=== PATIENT | female | born 1955 | race Caucasian/White ===

== ENCOUNTER 2017-11-18 01:54 | Inpatient (IN) | payer OTHER ==
[2017-11-18] VITALS (8 sets, daily range): BP systolic 139–169; BP diastolic 47–99
[~2017-11-18] VITALS: Ht 165.1 cm; Wt 92.5 kg
[2017-11-18] MEDS ORDERED: ONDANSETRON HCL 4MG/2ML VIAL IV STA (02:40)
[2017-11-18] MEDS ORDERED: FAMOTIDINE 20MG/2ML VIAL IV STA (02:40)
[2017-11-18] MEDS ORDERED: MAGNESIUM 2 G PREMIX 50 ML IV ONE (02:45)
[2017-11-18] MEDS ORDERED: LORAZEPAM 2MG/ML CPJ IV ONE (02:45)
[2017-11-18] MEDS ORDERED: FOLIC ACID 1 MG, THIAMINE HCL 100 MG, MVI, ADULT NO.1 10 ML in DEXTROSE 5% WATER 1,000 ML IV ONE ×4 (02:45)
[2017-11-18 03:14] LABS: MEAN CORPUSCULAR HEMOGLOBIN 31.5 pg (28.0-32.0); MEAN CORPUSCULAR VOLUME 91.9 fL (81.0-99.0); MEAN PLATELET VOLUME 9.5 fl (7.4-10.4); PLATELET 222 x1000/uL (130-400); RED BLOOD CELL COUNT 4.46 mill/uL (4.2-5.4); RED CELL DISTRIBUTION WIDTH 17.4 % (11.6-14.6)
[2017-11-18 03:16] LABS: PROTHROMBIN TIME 10.3 sec (9.4-11.6)
[2017-11-18 03:25] LABS: CARBON DIOXIDE 30 mEq/L (21-32); CHLORIDE 100 mEq/L (98-107); TROPONIN I < 0.02 ng/mL (0.00-0.04)
[2017-11-18 04:01] LABS: PLATELET ESTIMATE NORMAL
[2017-11-18] MEDS ORDERED: DEXTROSE 50% WATER 50ML SYRINGE IV ONE ×2 (06:30→08:30)
[2017-11-18] MEDS ORDERED: DEXTROSE 10% WATER 500 ML IV ONE (08:30)
[2017-11-18] MEDS ORDERED: DEXT 5%/0.45% NACL 1000ML 1,000 ML IV SCH (09:03)
[2017-11-18] MEDS ORDERED: ACETAMINOPHEN 650MG/20.3ML UDC PO PRN (09:15)
[2017-11-18] MEDS ORDERED: ONDANSETRON HCL 4MG/2ML VIAL IV PRN (09:15)
[2017-11-18] MEDS ORDERED: ENOXAPARIN 40MG/0.4ML SYR SUBCUT SCH (09:15)
[2017-11-18] MEDS ORDERED: LORAZEPAM 2MG/ML CPJ IV PRN ×2 (09:15→13:15)
[2017-11-18] MEDS ORDERED: FOLIC ACID 1MG TABLET PO SCH (11:00)
[2017-11-18] MEDS: DEXTROSE 50% WATER 50ML SYRINGE IV PRN ×3 (11:02→14:38)
[2017-11-18] MEDS ORDERED: DEXT 10% WATER 1,000 ML IV SCH ×3 (11:15→11:45)
[2017-11-18] MEDS ORDERED: OMEP20CA10 PO (11:24)
[2017-11-18] MEDS ORDERED: NAPR-681 PO (11:24)
[2017-11-18] MEDS ORDERED: AMLO10TA80 PO (11:24)
[2017-11-18] MEDS ORDERED: ONDA4TAB8 PO (11:24)
[2017-11-18] MEDS ORDERED: HYDR25TA PO (11:24)
[2017-11-18] MEDS ORDERED: BUSP5TAB3 PO (11:24)
[2017-11-18] MEDS ORDERED: BUPR100T5 PO (11:24)
[2017-11-18] MEDS ORDERED: PANTOPRAZOLE SODIUM 40 MG/VIAL IV SCH (11:45)
[2017-11-18] MEDS ORDERED: ACETAMINOPHEN 650MG SUPP PR PRN (12:30)
[2017-11-18] MEDS ORDERED: IPRATROPIUM/ALBUTEROL 0.5-3(2.5)MG/3ML NEB HHN PRN (12:30)
[2017-11-18 13:26] LABS: CLARITY URINE CLEAR (CLEAR); COLOR URINE DARK YELLOW (YELLOW); KETONES URINE TRACE (NEGATIVE); LEUKOCYTE ESTERASE URINE TRACE (NEGATIVE); NITRITE URINE NEGATIVE (NEGATIVE); OCCULT BLOOD URINE NEGATIVE (NEGATIVE); PH URINE 6.5 (4.5-8.0); PROTEIN URINE 3+ (NEGATIVE); UROBILINOGEN URINE 0.2 E.U./dL (0.2-1.0)
[2017-11-18 14:03] LABS: VITAMIN B12 SERUM 748 pg/mL (211-911)
[2017-11-18 14:04] LABS: FOLIC ACID (FOLATE) SERUM > 20.00 ng/mL (>5.38)
[2017-11-18 14:06] LABS: *AMPHETAMINES SCREEN URINE NEGATIVE (NEGATIVE); *BARBITURATES SCREEN URINE NEGATIVE (NEGATIVE); *BENZODIAZEPINES SCREEN URINE NEGATIVE (NEGATIVE); *COCAINE SCREEN URINE NEGATIVE (NEGATIVE); CANNABINOID URINE SCREEN NEGATIVE (NEGATIVE); METHADONE URINE SCREEN NEGATIVE (NEGATIVE); OPIATES URINE SCREEN NEGATIVE (NEGATIVE); PHENCYCLIDINE URINE SCREEN NEGATIVE (NEGATIVE)
[2017-11-18 14:28] LABS: AMMONIA 38 uMol/L (<32)
[2017-11-18] MEDS ORDERED: LIDOCAINE HCL 1% 20ML VIAL (Pyxis) INJ ONE (15:08)
[2017-11-18 15:50] LABS: HEPATITIS B SURFACE ANTIGEN NEGATIVE
[2017-11-18] MEDS: LORAZEPAM 2MG/ML CPJ IV SCH ×3 (16:00→23:22)
[2017-11-18 16:18] LABS: HEPATITIS B CORE AB IGM NEGATIVE
[2017-11-18 16:19] LABS: HEPATITIS A AB IGM NEGATIVE (NEGATIVE)
[2017-11-18] MEDS: POTASSIUM CHLORIDE IV SCH ×2 (16:44→22:21)
[2017-11-18] MEDS: DEXTROSE 20% IV SCH ×2 (16:44→22:21)
[2017-11-18] MEDS: WATER IV SCH ×2 (16:44→22:21)
[2017-11-18 16:48] LABS: PHOSPHORUS 3.6 mg/dL (2.5-4.9)
[2017-11-19] VITALS (12 sets, daily range): BP systolic 106–165; BP diastolic 46–103
[2017-11-19] MEDS: METOPROLOL TARTRATE 25MG TABLET PO SCH ×3 (01:27→20:40)
[2017-11-19] MEDS: WATER IV SCH (03:09)
[2017-11-19] MEDS: POTASSIUM CHLORIDE IV SCH (03:09)
[2017-11-19] MEDS: DEXTROSE 20% IV SCH (03:09)
[2017-11-19] MEDS: LORAZEPAM 2MG/ML CPJ IV SCH (03:12)
[2017-11-19] MEDS ORDERED: DEXTROSE 50% WATER 50ML SYRINGE IV PRN (06:45)
[2017-11-19 06:49] LABS: BASOPHILS % 0.7 % (0.0-2.0); CARBON DIOXIDE 31 mEq/L (21-32); CHLORIDE 96 mEq/L (98-107); EOSINOPHILS % 1.1 % (0.0-5.0); HEMATOCRIT. 37.6 % (36.0-48.0); HEMOGLOBIN. 12.6 g/dL (12.0-16.0); LYMPHOCYTES % 18.9 % (20.0-50.0); MEAN CORPUSCULAR HEMOGLOBIN 31.4 pg (28.0-32.0); MEAN CORPUSCULAR VOLUME 93.3 fL (81.0-99.0); MEAN PLATELET VOLUME 10.6 fl (7.4-10.4); MONOCYTES % 4.9 % (2.0-8.0); NEUTROPHILS % 74.4 % (40.0-76.0); PHOSPHORUS 3.2 mg/dL (2.5-4.9); PLATELET 174 x1000/uL (130-400); RED BLOOD CELL COUNT 4.03 mill/uL (4.2-5.4); RED CELL DISTRIBUTION WIDTH 16.9 % (11.6-14.6)
[2017-11-19] MEDS ORDERED: DEXT 10% WATER 1,000 ML IV SCH (07:15)
[2017-11-19] MEDS ORDERED: PANTOPRAZOLE 40MG DR TABLET PO SCH (07:20)
[2017-11-19] MEDS: BLOOD SUGAR DIAGNOSTIC STRIP TEST SCH ×5 (07:30→22:39)
[2017-11-19] MEDS ORDERED: MULTIVITAMINS,THER W-MINERALS TABLET PO SCH (09:00)
[2017-11-19] MEDS ORDERED: DEXT 10%/0.9% NACL 1,000 ML IV PRN (09:00)
[2017-11-19] MEDS ORDERED: FOLIC ACID 1MG TABLET PO SCH (09:00)
[2017-11-19] MEDS ORDERED: THIAMINE HCL 100MG TABLET PO SCH (09:00)
[2017-11-19] MEDS ORDERED: DEXT 10%/0.45% NACL 1,000 ML IV SCH (09:30)
[2017-11-19] MEDS ORDERED: CEFAZOLIN 500 MG in DEXTROSE 5% WATER 50 ML IV SCH (09:30)
[2017-11-19] MEDS ORDERED: [UNRECOGNIZED DRUG - REMARK] IV SCH ×5 (10:00)
[2017-11-19] MEDS: RISPERIDONE 1MG TABLET PO SCH (10:30)
[2017-11-19] MEDS: ENOXAPARIN 40MG/0.4ML SYR SUBCUT SCH (10:54)
[2017-11-19] MEDS: LACTULOSE 20G/30ML UDC PO SCH (10:54)
[2017-11-19] MEDS ORDERED: SODIUM CHLORIDE 23.4% 77 MEQ in DEXT 10% WATER 1,000 ML IV SCH (11:30)
[2017-11-19] MEDS: CEFAZOLIN 1000MG PREMIX 50 ML IV SCH ×2 (12:22→22:09)
[2017-11-19] MEDS: CHLORDIAZEPOXIDE 25MG CAPSULE PO SCH ×2 (15:24→21:58)
[2017-11-19] MEDS: HYDROCODONE/ACETAMINOPHEN 5/325MG TABLET PO PRN (16:13)
[2017-11-19] MEDS ORDERED: [UNRECOGNIZED DRUG - REMARK] IV SCH ×4 (20:00)
[2017-11-20] VITALS (9 sets, daily range): BP systolic 141–168; BP diastolic 68–108
[2017-11-20] MEDS: BLOOD SUGAR DIAGNOSTIC STRIP TEST SCH ×3 (03:30→11:45)
[2017-11-20] MEDS ORDERED: DEXT 5%/0.45% NACL 1000ML 1,000 ML IV SCH (06:00)
[2017-11-20] MEDS: CHLORDIAZEPOXIDE 25MG CAPSULE PO SCH ×2 (06:34→13:07)
[2017-11-20] MEDS: HYDROCODONE/ACETAMINOPHEN 5/325MG TABLET PO PRN (06:40)
[2017-11-20 07:21] LABS: BASOPHILS % 1.6 % (0.0-2.0); EOSINOPHILS % 3.2 % (0.0-5.0); HEMATOCRIT. 35.5 % (36.0-48.0); HEMOGLOBIN. 12.1 g/dL (12.0-16.0); LYMPHOCYTES % 27.5 % (20.0-50.0); MEAN CORPUSCULAR HEMOGLOBIN 31.8 pg (28.0-32.0); MEAN PLATELET VOLUME 10.3 fl (7.4-10.4); MONOCYTES % 5.9 % (2.0-8.0); NEUTROPHILS % 61.8 % (40.0-76.0); PLATELET 135 x1000/uL (130-400); RED BLOOD CELL COUNT 3.81 mill/uL (4.2-5.4); RED CELL DISTRIBUTION WIDTH 17.1 % (11.6-14.6)
[2017-11-20] MEDS ORDERED: PANTOPRAZOLE 40MG DR TABLET PO SCH (07:30)
[2017-11-20] MEDS: RISPERIDONE 1MG TABLET PO SCH (08:12)
[2017-11-20] MEDS: ENOXAPARIN 40MG/0.4ML SYR SUBCUT SCH (08:12)
[2017-11-20] MEDS: METOPROLOL TARTRATE 25MG TABLET PO SCH (08:12)
[2017-11-20] MEDS: LACTULOSE 20G/30ML UDC PO SCH (08:16)
[2017-11-20] MEDS: CEFAZOLIN 1000MG PREMIX 50 ML IV SCH (10:35)
== END 2017-11-20 15:10 | disposition home or self-care (01) | DRG 871 ==
LOC: ER 01:54 → EDBD 01:54 → 6WST 01:55 → EDBEDREQ 05:17 → ENRESERV 07:45 → 5EST 12:53
PROVIDERS: ADMIT Internal Medicine; ATTEND Internal Medicine
PROC: 02HV33Z Insertion of Infusion Device into Superior Vena Cava, Percutaneous Approach (ICD-10-PCS; principal; 2017-11-18)
PROC: B548ZZA Ultrasonography of Superior Vena Cava, Guidance (ICD-10-PCS; 2017-11-18)
DX: A41.9 Sepsis, unspecified organism (principal); G93.41 Metabolic encephalopathy; N17.9 Acute kidney failure, unspecified; F10.231 Alcohol dependence with withdrawal delirium; E72.20 Disorder of urea cycle metabolism, unspecified; N39.0 Urinary tract infection, site not specified; K76.0 Fatty (change of) liver, not elsewhere classified; F32.9 Major depressive disorder, single episode, unspecified; I10 Essential (primary) hypertension; K80.20 Calculus of gallbladder without cholecystitis without obstruction; R74.0 Nonspecific elevation of levels of transaminase and lactic acid dehydrogenase [LDH]; E16.2 Hypoglycemia, unspecified; Z90.49 Acquired absence of other specified parts of digestive tract; Z79.899 Other long term (current) drug therapy
CPT/HCPCS: 36415; 36569; 71045; 76700; 76937; 80048; 80053; 80076; 80305; 81001; 82040; 82140; 82607; 82746; 82962; 83605; 83690; 83735; 84100; 84425; 84443; 84484; 85025; 85610; 86705; 86709; 86803; 87040; 87086; 87340; 93005; 96374; 96375; 99291; C1725; C9113; G0482; J0690; J1650; J2060; J2405; J3411; J3475; J3480; J3490; J7070; J7131